=== PATIENT | male | born 1945 | race Caucasian/White ===

== ENCOUNTER → 2017-08-29 | Outpatient (CLI) | payer OTHER ==
[~2017-08-29] MED LIST: ASPCH81; LISI5TAB3 PO; OXYC-57 PO
[2017-08-29 16:43] LABS: BASO % 0.3 %; BASO ABS # 0.02 K/uL (0-0.2); EOS % 0.5 %; EOS ABS # 0.04 K/uL (0-0.5); HEMATOCRIT 39.6 % (42-52); HEMOGLOBIN 13.3 g/dL (14.0-18.0); IG# 0.01 K/uL (0.00-0.02); LYMPH % 17.5 %; LYMPH ABS # 1.32 K/uL (1.2-3.4); MEAN CELL VOLUME 90.6 fL (80-100); MEAN CORPUSCULAR HEMOGLOBIN 30.4 pg (25-34); MEAN CORPUSCULAR HGB CONC 33.6 g/dl (32-36); MEAN PLATELET VOLUME 9.8 fL (7.4-10.4); MONO % 3.9 %; MONO ABS # 0.29 K/uL (0.11-0.59); NEUT % 77.7 %; NEUT ABS # 5.85 K/uL (1.4-6.5); PLATELET COUNT 202 K/uL (130-400); WHITE BLOOD COUNT 7.53 K/uL (4.8-10.8)
[2017-08-29 17:11] LABS: ALBUMIN 3.6 gm/dl (3.4-5.0); ALKALINE PHOSPHATASE 96 U/L (45-117); ALT/SGPT 22 U/L (12-78); AST/SGOT 25 U/L (15-37); BLOOD UREA NITROGEN 12 mg/dl (7-18); CALCIUM 8.5 mg/dl (8.5-10.1); CARBON DIOXIDE 30 mmol/L (21-32); CHOLESTEROL 129 mg/dl (0-200); CREATININE 0.95 mg/dl (0.60-1.40); GLUCOSE 124 mg/dl (70-99); LDL CHOLESTEROL CALCULATED 49 mg/dl; POTASSIUM 4.1 mmol/L (3.5-5.1); SODIUM 137 mmol/L (136-145); TOTAL PROTEIN 6.8 gm/dl (6.4-8.2)
== END | disposition home or self-care (01) ==
LOC: C.LABBFT 14:22
PROVIDERS: ATTEND Physician Assistant Medical
DX: J30.2 Other seasonal allergic rhinitis (principal)

== ENCOUNTER → 2017-09-03 | Outpatient (CLI) | payer OTHER ==
[2017-09-03 13:21] LABS: RETIC COUNT % 1.7 % (0.5-2.0)
[2017-09-03 14:10] LABS: HEMOGLOBIN A1C 5.2 % (4.5-5.6)
== END | disposition home or self-care (01) ==
LOC: C.LABBFT 11:17
PROVIDERS: ATTEND Physician Assistant Medical
DX: R73.09 Other abnormal glucose (principal); D64.9 Anemia, unspecified

== ENCOUNTER 2021-12-14 05:28 | Inpatient (IN) ==
--- NOTE | 2021-12-07 12:12 | Anesthesiology Consultation ---
Date of Service December 07, 2021 History Surgery Operation Date: 12/14/21 07:00 Proposed Procedures p Laparoscopic Right Hemicolectomy - Tim Kline, Height/Weight Height: 5 ft 8 in Weight: 61.235 kg Allergies Allergy/AdvReac Type Severity Reaction Status Date / Time terbinafine Allergy Mild Rash Verified 12/07/21 10:12 lactose AdvReac Gastrointestinal Verified 12/07/21 10:12 Upset Medications Home Medications Medication Instructions Recorded Confirmed Last Taken lisinopril 5 mg tablet 5 mg PO QAM 12/07/21 12/07/21 Unknown meloxicam 15 mg tablet 15 mg PO QAM 12/07/21 12/07/21 Unknown Past Medical History Medical History BPH (benign prostatic hyperplasia) Cardiac murmur D/T MVR Cecal volvulus Hearing deficit hearing aids Hyponatremia Mitral valve regurgitation f/u Dr. Gallegos, his PCP Osteoarthritis Seasonal allergies Past Family History Family History Mother Myocardial infarction Cancer Heart disease Hypertension Aunt Myocardial infarction Uncle Myocardial infarction Brother Mitral valve replaced Leukemia Father Cancer Heart disease Denies family history of Ovarian cancer Prostate cancer Breast cancer Colorectal cancer Past Surgical History Surgical History History of esophagogastroduodenoscopy (EGD) Hx of colonoscopy Hx of right inguinal hernia repair 2005 Hx of tooth extraction Hx of vasectomy Social History Smoking Status: Never smoker Do You Dip or Chew Tobacco: No Hx Alcohol Use: No Alcohol type: beer Hx Substance Use: No substance use type: does not use Testing Electrocardiogram Date: 12/05/21 DICTATED BY:Reyes Boles MD Test Reason : Blood Pressure : / mmHG Vent. Rate : 077 BPM Atrial Rate : 077 BPM P-R Int : 188 ms QRS Dur : 104 ms QT Int : 392 ms P-R-T Axes : 079 -88 078 degrees QTc Int : 443 ms Normal sinus rhythm Left anterior fascicular block Incomplete right bundle branch block Abnormal ECG When compared with ECG of 09-JUL-2006 06:17, No significant change Confirmed by Reyes Boles ([id number]) on 12/05/2021 12:54:09 PM Referred By: Tim Kline Confirmed By:Reyes Boles Echocardiogram Date: 07/22/21 EF: 60-65 LV Function: normal Valvular Disease: + MR (mild) Other Testing CT OF THE ABDOMEN AND PELVIS WITHOUT CONTRAST CLINICAL HISTORY: R10.9 - Unspecified abdominal pain. COMPARISON STUDY: CT of the chest and abdomen July 09, 2006. TECHNIQUE: Axial images of the abdomen and pelvis were obtained without IV contrast. Images were reviewed in the axial, sagittal, and coronal planes. Automated exposure control was utilized for the study. A dose lowering technique was utilized adhering to the principles of ALARA. FINDINGS: Lung bases are unremarkable. No pneumatosis, free air or portal venous gas is present. Evaluation of the abdomen and pelvis is suboptimal on this unenhanced exam. Unenhanced images of the liver, spleen, adrenal glands, kidneys and pancreas are unremarkable. There is no biliary or pancreatic ductal dilatation. There is no hydronephrosis. A small amount of pelvic ascites is noted. There is evidence for congenital bowel malrotation. There is swirling of the mesenteric vessels shown best on axial image 162 of 421. This finding is age indeterminate. There are clustered jejunal loops which are mildly fluid-filled with borderline dilatation. These measure up to 2.7 cm in caliber. There is associated mesenteric stranding. In addition, the cecum is filled with stool and markedly distended, measuring 11.4 cm in caliber. The cecum is also abnormally positioned within the upper pelvis extending into the lower abdomen. Apparent transition point within the proximal ascending colon shown on axial image 265 of 421 is noted. Adjacent prominent lymph node measures 8 mm. There is mild wall thickening of the terminal ileum. Sigmoid diverticulosis is noted without evidence for acute diverticulitis. The prostate is enlarged, measuring 6.5 cm in transverse dimension. No acute fracture or suspicious lesion within the visualized skeletal structures. IMPRESSION: 1. Stool-filled, markedly distended cecum, measuring 11.4 cm in diameter. Apparent transition point within the proximal ascending colon, suboptimally assessed on this unenhanced exam. This could be due to a developing cecal volvulus or underlying colonic neoplasm. Surgical consultation is recommended. Findings discussed with Dr. Gallegos at time of dictation. 2. Evidence for congenital bowel malrotation. Prominent fluid-filled clustered jejunal loops. Although not highly suggestive, a small bowel obstruction in the setting of midgut volvulus cannot be completely excluded, particularly given mesenteric stranding. No pneumatosis, free air or portal venous gas. Small amount of fluid within the pelvis. ACT 112: Negative or not required by law. Electronically signed by: Lenny Mansfield M.D. 11/30/2021 3:58 PM Dictated:11/30/21 1534
[2021-12-14] MEDS ORDERED: SODIUM CHLORIDE 0.9% 1000ML IV SCH (06:00)
[2021-12-14] MEDS ORDERED: ceFAZolin 2000MG 2,000 MG/15 ML SYR IV SCH (06:00)
[2021-12-14 06:42] LABS: BUN Creatinine Ratio 11.4 (10-20); Calcium 9.4 mg/dl (8.5-10.1); Creatinine Clr Calc Pharmacy 58.1 ml/min; Est GFR (Non-African American) 82.9 ml/min; Potassium 3.7 mmol/L (3.5-5.1)
--- NOTE | 2021-12-14 06:45 | History & Physical Bridge Note ---
Date of Service December 14, 2021 History & Physical Bridge Note I have examined the patient, reviewed the History & Physical and in the interval since the performance of the History & Physical I have noted the following changes of clinical significance: no changes noted
[2021-12-14] MEDS ORDERED: EPINEPHrine INJ 1 MG/ML AMP ONE (06:51)
[2021-12-14] MEDS ORDERED: BUPIVACAINE 0.5 % 5 MG/1 ML MPF 30ML VIAL ONE (06:51)
[2021-12-14] MEDS ORDERED: ONDANSETRON INJ 2 MG/ML 2 ML VIAL IV PRN ×2 (07:00→11:03)
[2021-12-14] MEDS ORDERED: LABETALOL HCL IV 5 MG/ML 20ML IV PRN (07:00)
[2021-12-14] MEDS ORDERED: PROMETHAZINE HCL 12.5 MG in SODIUM CHLORIDE 0.9% 50 ML IV PRN (07:00)
[2021-12-14] MEDS ORDERED: ePHEDrine sulfate 50 MG/ML AMP IV PRN (07:00)
[2021-12-14] MEDS ORDERED: FLUMAZENIL 0.1 MG/1 ML 10 ML VIAL IV PRN (07:00)
[2021-12-14] MEDS ORDERED: ATROPINE SULFATE 0.1 MG/ML 10ML SYR IV PRN (07:00)
[2021-12-14] MEDS ORDERED: NALOXONE HCL 0.4 MG/1 ML VIAL/CARP IV PRN (07:00)
[2021-12-14] MEDS ORDERED: fentaNYL citrate 100 MCG/2 ML VIAL ONE (07:05)
[2021-12-14] MEDS ORDERED: LIDOCAINE 2% MPF LOCAL 5 ML VIAL INFIL ONE (07:07)
[2021-12-14] MEDS ORDERED: PROPOFOL IV EMULSION 10 MG/ML 20 ML VIAL IV ONE (07:07)
[2021-12-14] MEDS ORDERED: ROCURONIUM BROMIDE 10 MG/ML 5 ML VIAL IV ONE (07:07)
[2021-12-14] MEDS ORDERED: ACETAMINOPHEN 1000 MG/100 ML IV IV ONE (07:09)
[2021-12-14] MEDS ORDERED: SUGAMMADEX SODIUM 200 MG/2 ML VIAL IV ONE (07:09)
[2021-12-14] MEDS ORDERED: ONDANSETRON INJ 2 MG/ML 2 ML VIAL ONE (07:11)
[2021-12-14] MEDS ORDERED: DEXAMETHASONE SOD INJ 4 MG/ML VIAL ONE (07:11)
[2021-12-14] MEDS ORDERED: ALBUMIN HUMAN 5% 12.5 GM/250 ML VIAL IV ONE (07:21)
[2021-12-14] MEDS ORDERED: HYDROmorphone INJ 2 MG/ML SYR/VIAL ONE (07:21)
[2021-12-14] MEDS ORDERED: PHENYLEPHRINE HCL 10 MG/ML VIAL ONE (07:36)
[2021-12-14] MEDS ORDERED: KETAMINE 50 MG/5 ML SYRINGE ONE (07:40)
--- NOTE | 2021-12-14 09:03 | Operative Report ---
PG Post Operative Report Pre & Post Diagnosis Operation Date: 12/14/21 07:00 Pre-Op Diagnosis: Cecal Volvulus Post-Op Diagnosis: Cecal Volvulus ; midgut malrotation I identified the patient and participated in the time-out.: Yes Procedure Operation Date: 12/14/21 07:00 Actual Procedures p Laparoscopic converted open Right Hemicolectomy(Right) - Tim Kline DO Surgeon Tim Kline DO Last Model Department Supervisor juan Martinez Estimated Blood Loss 10 Findings Consistent with Post-Op Diagnosis Specimens cecum, right colon Description of Procedure After informed consent was obtained the patient was taken to the operating room and placed in supine position. After successful intubation a Alejandre cath was placed sterilely. The abdomen was sterilely prepped and draped in usual fashion. I began with an infraumbilical incision with 11 blade scalpel. This was carried down through the soft tissue using cautery. The anterior fascia was opened using cautery and two #0 Vicryl stay sutures were placed. Peritoneum was elevated with hemostats and incised under direct vision using a Metzenbaum scissor. Finger sweep was performed. A 12 mm Thomas trocar was placed and the abdomen was insufflated to 20 mmHg. The laparoscope was inserted and the abdomen examined in 360 degrees. A left lower quadrant 12 mm trocar and a suprapubic 5 mm trocar were placed under direct vision. We immediately noted a dilated cecum. It became readily apparent that the patient actually did have a midgut malrotation. It was very difficult to delineate anatomy as the majority of his bowel was in a retroperitoneal sac. At this point early on we decided to convert to an open procedure. The trochars were all removed. We made a midline incision from below the umbilicus up and around part way up to the xiphoid process. This was opened to both poles using cautery. Once in the abdomen we were able to open the sac to identify the entirety of the small bowel. The cecum was in fact twisted and had a leading point attached to the right lower quadrant sidewall. I was able to take this down using finger fractionation. At this point we were able to identify the terminal ileum and transected it with a LUIS MIGUEL brown cartridge linear stapler. We were then able to follow the cecum up to the mid transverse colon. I made a small window in the mesentery of the transverse colon proximal to the middle colic vessels. Transverse colon was transected with a brown cartridge 60 mm stapler as well. We then divided the mesentery using the LigaSure device. We then ran the small bowel from the ligament of Treitz which was in the right upper quadrant down to the staple line. At this point we made a side to side small bowel to transverse colon anastomosis using a LUIS MIGUEL brown cartridge linear stapler. We used 2 firings of a brown 60 to elongate the anastomosis. The common enterotomy was handsewn using 3-0 Monocryl for serosal mucosal layers in simple interrupted fashion. It was then oversewn in Lembert fashion using 3-0 silk. 3-0 silk was also used to place a crotch stitch. The mesenteric defect was closed using 2-0 Vicryl in a running fashion. Once the anastomosis was established we again ran the small bowel from the ligament of Treitz to the anastomosis to make sure there was no twisting or internal hernias which there was not. We thoroughly irrigated the entire abdomen. There was adequate hemostasis. The fascia was closed using #1 looped PDS starting in either pole and securing them together in the midline. Soft tissue was irrigated and closed using skin michell over quarter inch [place] drain. Silver dressings were applied. The patient was awakened extubated and transferred recovery in stable condition. My physician geriatric assistant was present for the entire case. He was instrumental in exposure throughout the case as well as assisting with the anastomosis wound closure and dressing placement. I attest to the content of the Intraoperative Record and any orders documented therein. Any exceptions are noted below.
[2021-12-14] MEDS: fentaNYL citrate 100 MCG/2 ML VIAL IV PRN ×4 (09:18→09:33)
[2021-12-14] MEDS: HYDROmorphone INJ 1 MG/ML SYRINGE IV PRN ×5 (09:41→10:10)
--- NOTE | 2021-12-14 10:17 | Anesthesiology Progress Note ---
Date of Service December 14, 2021 Anesthesia Post Procedure Vital Signs Vital Signs: Temp Pulse Pulse Resp BP Pulse Ox O2 Del Method 12/14/21 10:10 36 C L 68 17 130/83 98 Room Air 12/14/21 10:00 72 10 L 136/90 98 Room Air 12/14/21 09:30 61 10 L 156/96 H 100 Oxymask 12/14/21 09:50 70 10 L 140/88 98 Room Air 12/14/21 09:40 63 12 124/100 100 Oxymask 12/14/21 09:20 65 16 149/90 H 100 Oxymask 12/14/21 09:10 36.2 C L 67 11 L 150/87 H 100 Oxymask 12/14/21 05:47 36.7 C 78 17 159/107 H 98 Room Air O2 Flow Rate 12/14/21 10:10 12/14/21 10:00 12/14/21 09:30 2 12/14/21 09:50 12/14/21 09:40 4 12/14/21 09:20 5 12/14/21 09:10 5 12/14/21 05:47 Pain Intensity Abdomen: Pain Intensity: 5 Transfer of Care Handoff Completed per policy Notes Mental Status: alert / awake / arousable Patient Amnestic to Procedure: Yes Nausea / Vomiting: adequately controlled Pain: adequately controlled Airway Patency, RR, SpO2: stable & adequate BP & HR: stable & adequate Hydration State: stable & adequate Anesthetic Complications: no major complications apparent
[2021-12-14] MEDS ORDERED: HYDROmorphone INJ 0.5 MG/0.5 ML SYR IV PRN ×2 (11:03)
[2021-12-14] MEDS: SODIUM CHLORIDE 0.9% 1000ML 1,000 ML IV SCH ×2 (12:01→19:52)
[2021-12-14] MEDS: ACETAMINOPHEN 1,000 MG/100 ML VIAL IV SCH ×2 (12:55→20:00)
[2021-12-14] MEDS: ceFAZolin 2000MG 2,000 MG/15 ML SYR IV SCH ×2 (16:04→23:33)
[2021-12-15] MEDS: ACETAMINOPHEN 1,000 MG/100 ML VIAL IV SCH ×3 (04:08→19:54)
[2021-12-15] MEDS: SODIUM CHLORIDE 0.9% 1000ML 1,000 ML IV SCH ×3 (04:08→21:05)
[2021-12-15] MEDS: ceFAZolin 2000MG 2,000 MG/15 ML SYR IV SCH (06:05)
[2021-12-15 06:29] LABS: Basophils # (auto) 0.03 K/uL (0-0.2); Basophils % (auto) 0.3 %; Eosinophils # (auto) 0.01 K/uL (0-0.50); Eosinophils % (auto) 0.1 %; Hematocrit (blood only) 34.3 % (40.1-51.0); Hemoglobin 11.7 g/dl (14.0-18.0); Immature Granulocytes # (auto) 0.05 K/uL (0.00-0.02); Immature Granulocytes % (auto) 0.4 %; Lymphocytes # (auto) 0.73 K/uL (1.2-3.4); Lymphocytes % (auto) 6.4 %; Mean Corpuscular Hemoglobin 30.4 pg (25.0-34.0); Mean Corpuscular Hgb Conc 34.1 g/dL (32.0-36.0); Mean Corpuscular Volume 89.1 fL (80.0-100.0); Mean Platelet Volume 8.6 fL (9.4-12.4); Monocytes # (auto) 0.76 K/uL (0.24-0.82); Monocytes % (auto) 6.6 %; Neutrophils # (auto) 9.85 K/uL (1.4-6.5); Neutrophils % (auto) 86.2 %; Platelet Count 222 K/uL (130-400); RDW Coefficient of Variation 11.9 % (11.5-14.5); RDW Standard Deviation 38.2 fL (36.4-46.3); Red Blood Count 3.85 M/uL (4.63-6.08); White Blood Count 11.43 K/ul (4.8-10.8)
[2021-12-15 07:01] LABS: BUN Creatinine Ratio 20.3 (10-20); Creatinine Clr Calc Pharmacy 74.1 ml/min; Est GFR (African American) 106.1 ml/min; Est GFR (Non-African American) 91.6 ml/min
--- NOTE | 2021-12-15 07:53 | Surgery Progress Note ---
Date of Service December 15, 2021 Assessment & Plan (1) Cecal volvulus: Plan: POD 1 cecectomy start on clears Lovenox start on Flomax-has nocturia at home, consider removing cole later vs tomorrow as above. doing well. keep cole one more night. clears only for now. Admission and Anticipated Discharge Date Admission Date: December 14, 2021 Subjective some flatus, pain control good, OOB this AM Physical Exam Gastrointestinal (Abdomen): Inspection/Auscultation: + abdominal surgical incision (small shadowing from lower ivet); abdomen not distended Percussion/Palpation: abdomen soft Results & Data ([facility]) Vital Signs (Past 12 Hours) Vital Signs Temp Pulse Resp BP Pulse Ox O2 Del Method 12/15/21 07:22 36.6 C 67 16 158/81 H 97 Room Air 12/15/21 03:20 36.8 C 72 16 145/88 H 91 Room Air 12/14/21 22:42 36.5 C 76 16 111/56 L 95 Room Air PG Care Time/CCT Total # of Minutes Spent Total Time Spent with Patient: Total time spent is greater than 50% in coordination of care (as documented) at patient's floor/unit and/or counseling patient: Coding Level of Care Code None Diagnoses Cecal volvulus K56.2
[2021-12-15] MEDS: lisinopril 5 MG TAB PO SCH (09:25)
[2021-12-15] MEDS: MELOXICAM 7.5 MG TAB PO SCH (09:25)
[2021-12-15] MEDS: TAMSULOSIN HCL 0.4 MG CAP PO SCH (09:25)
[2021-12-15] MEDS: ENOXAPARIN INJ 40 MG/0.4 ML SYR SQ SCH (09:29)
[2021-12-16] MEDS: ACETAMINOPHEN 1,000 MG/100 ML VIAL IV SCH ×3 (04:12→19:38)
[2021-12-16] MEDS: SODIUM CHLORIDE 0.9% 1000ML 1,000 ML IV SCH (04:13)
[2021-12-16 06:02] LABS: Basophils # (auto) 0.03 K/uL (0-0.2); Basophils % (auto) 0.3 %; Eosinophils # (auto) 0.05 K/uL (0-0.50); Eosinophils % (auto) 0.6 %; Hematocrit (blood only) 30.5 % (40.1-51.0); Hemoglobin 10.9 g/dl (14.0-18.0); Immature Granulocytes # (auto) 0.03 K/uL (0.00-0.02); Immature Granulocytes % (auto) 0.3 %; Lymphocytes # (auto) 0.63 K/uL (1.2-3.4); Lymphocytes % (auto) 7.3 %; Mean Corpuscular Hemoglobin 31.3 pg (25.0-34.0); Mean Corpuscular Hgb Conc 35.7 g/dL (32.0-36.0); Mean Corpuscular Volume 87.6 fL (80.0-100.0); Mean Platelet Volume 8.8 fL (9.4-12.4); Monocytes % (auto) 5.8 %; Neutrophils # (auto) 7.39 K/uL (1.4-6.5); Neutrophils % (auto) 85.7 %; Platelet Count 202 K/uL (130-400); RDW Standard Deviation 38.9 fL (36.4-46.3); Red Blood Count 3.48 M/uL (4.63-6.08); White Blood Count 8.63 K/ul (4.8-10.8)
[2021-12-16 06:24] LABS: BUN Creatinine Ratio 14.8 (10-20); Calcium 7.8 mg/dl (8.5-10.1); Creatinine Clr Calc Pharmacy 94.6 ml/min; Est GFR (African American) 117.4 ml/min; Est GFR (Non-African American) 101.3 ml/min; Potassium 3.7 mmol/L (3.5-5.1)
[2021-12-16] MEDS: MELOXICAM 7.5 MG TAB PO SCH (08:26)
[2021-12-16] MEDS: lisinopril 5 MG TAB PO SCH (08:26)
[2021-12-16] MEDS: TAMSULOSIN HCL 0.4 MG CAP PO SCH (08:27)
[2021-12-16] MEDS: ENOXAPARIN INJ 40 MG/0.4 ML SYR SQ SCH (08:28)
--- NOTE | 2021-12-16 10:44 | Surgery Progress Note ---
Date of Service December 16, 2021 Assessment & Plan (1) H/O right hemicolectomy: Plan: Postop day 2. Doing well. Pathology still pending. Awaiting bowel function. Will advance to full liquids. Dr. Hurtado covering for the weekend. Admission and Anticipated Discharge Date Admission Date: December 14, 2021 Subjective Patient seen. Doing well. No bowel movement but he is passing flatus. Minimal discomfort that is well controlled. Physical Exam Physical Exam: Alert. No acute distress Abdomen is soft. Expected incisional tenderness. Incision looks good. Results & Data ([facility]) Vital Signs (Past 12 Hours) Vital Signs Temp Pulse Pulse Resp BP Pulse Ox O2 Del Method 12/16/21 07:36 36.3 C L 76 18 137/82 95 Room Air 12/15/21 23:39 36.8 C 72 18 137/82 100 Room Air PG Care Time/CCT Total # of Minutes Spent Total Time Spent with Patient: Total time spent is greater than 50% in coordination of care (as documented) at patient's floor/unit and/or counseling patient: Coding Level of Care Code None Diagnoses H/O right hemicolectomy Z90.49
[2021-12-16] MEDS ORDERED: oxyCODONE/ACETAMINOPHEN 5mg/325mg TAB PO PRN ×2 (19:34→19:37)
[2021-12-17] MEDS: ACETAMINOPHEN 1,000 MG/100 ML VIAL IV SCH (04:14)
[2021-12-17 06:18] LABS: Basophils # (auto) 0.02 K/uL (0-0.2); Basophils % (auto) 0.3 %; Eosinophils # (auto) 0.06 K/uL (0-0.50); Eosinophils % (auto) 0.9 %; Hematocrit (blood only) 33.6 % (40.1-51.0); Hemoglobin 11.9 g/dl (14.0-18.0); Immature Granulocytes # (auto) 0.02 K/uL (0.00-0.02); Immature Granulocytes % (auto) 0.3 %; Lymphocytes # (auto) 0.61 K/uL (1.2-3.4); Lymphocytes % (auto) 9.4 %; Mean Corpuscular Hemoglobin 30.8 pg (25.0-34.0); Mean Corpuscular Hgb Conc 35.4 g/dL (32.0-36.0); Mean Platelet Volume 8.6 fL (9.4-12.4); Monocytes # (auto) 0.48 K/uL (0.24-0.82); Monocytes % (auto) 7.4 %; Neutrophils % (auto) 81.7 %; Platelet Count 212 K/uL (130-400); RDW Coefficient of Variation 11.8 % (11.5-14.5); RDW Standard Deviation 37.9 fL (36.4-46.3); Red Blood Count 3.86 M/uL (4.63-6.08); White Blood Count 6.49 K/ul (4.8-10.8)
[2021-12-17 06:39] LABS: BUN Creatinine Ratio 12.7 (10-20); Calcium 7.9 mg/dl (8.5-10.1); Creatinine Clr Calc Pharmacy 92.9 ml/min; Est GFR (African American) 116.5 ml/min; Est GFR (Non-African American) 100.5 ml/min; Potassium 3.6 mmol/L (3.5-5.1)
--- NOTE | 2021-12-17 06:50 | Surgery Progress Note ---
Date of Service December 17, 2021 Assessment & Plan (1) H/O right hemicolectomy: Plan: Patient with some mild bowel function Is a little distended-decreased bowel sounds We will continue him on full liquids Encourage ambulation in the hallway Advance diet depending on his bowel function At least 1-2 more days in the hospital Admission and Anticipated Discharge Date Admission Date: December 14, 2021 Results & Data ([facility]) Vital Signs (Past 12 Hours) Vital Signs Temp Pulse Resp BP Pulse Ox O2 Del Method 12/16/21 20:30 Room Air 12/16/21 22:46 36.7 C 77 20 133/87 95 Room Air PG Care Time/CCT Total # of Minutes Spent Total Time Spent with Patient: Total time spent is greater than 50% in coordination of care (as documented) at patient's floor/unit and/or counseling patient: Coding Level of Care Code None Diagnoses H/O right hemicolectomy Z90.49
[2021-12-17] MEDS: lisinopril 5 MG TAB PO SCH (08:42)
[2021-12-17] MEDS: ENOXAPARIN INJ 40 MG/0.4 ML SYR SQ SCH (08:43)
[2021-12-17] MEDS: TAMSULOSIN HCL 0.4 MG CAP PO SCH (08:43)
[2021-12-17] MEDS: MELOXICAM 7.5 MG TAB PO SCH (08:43)
--- NOTE | 2021-12-17 12:26 | XRay Report ---
KUB HISTORY: Postop. Bowel obstruction. Abdominal distention. COMPARISON: Abdomen and pelvis CT 11/30/2021. FINDINGS: There are midline skin michell. Multiple dilated gas-filled loops of large and small bowel are noted. No renal calculi. No ureteral calculi. There may be trace pneumoperitoneum within the lef t upper quadrant. This could be postoperative. IMPRESSION: 1. Multiple dilated gas filled loops of large and small bowel seen throughout the abdomen. Findings f avor a postoperative ileus. A residual bowel obstruction could also have a similar appearance. Contin ued follow-up recommended. 2. Probable trace pneumoperitoneum. This could be due to the recent postoperative change. ACT 112: Negative or not required by law. Electronically signed by: Dalton Sutton M.D. 12/17/2021 12:24 PM
--- NOTE | 2021-12-17 13:50 | Communication Note ---
Date of Service: December 17, 2021 Was made aware by RN patient noted increasing abdominal distention and discomfort. KUB ordered revealing evidence of ileus. Patient also had an episode of emesis. On exam patient's abdomen is distended with mild general discomfort to palpation. At this time will back patient down to NPO, restart maintenance IVF, and order NGT to be placed. Patient is agreeable with the plan.
[2021-12-17 14:49] LABS: Magnesium 1.7 mg/dl (1.7-2.4); Phosphorus 2.2 mg/dl (2.5-4.9)
[2021-12-17] MEDS: D5NSS + 20MEQ KCL 20 MEQ/1,000 ML BAG IV SCH (16:23)
[2021-12-17] MEDS: ACETAMINOPHEN 1,000 MG/100 ML VIAL IV PRN (21:48)
[2021-12-18] MEDS: D5NSS + 20MEQ KCL 20 MEQ/1,000 ML BAG IV SCH ×2 (05:11→21:40)
[2021-12-18 07:13] LABS: Basophils # (auto) 0.03 K/uL (0-0.2); Basophils % (auto) 0.4 %; Eosinophils # (auto) 0.02 K/uL (0-0.50); Eosinophils % (auto) 0.3 %; Hematocrit (blood only) 33.1 % (40.1-51.0); Hemoglobin 11.6 g/dl (14.0-18.0); Immature Granulocytes # (auto) 0.01 K/uL (0.00-0.02); Immature Granulocytes % (auto) 0.1 %; Lymphocytes % (auto) 6.7 %; Mean Corpuscular Hemoglobin 30.5 pg (25.0-34.0); Mean Corpuscular Volume 87.1 fL (80.0-100.0); Mean Platelet Volume 8.5 fL (9.4-12.4); Monocytes # (auto) 0.45 K/uL (0.24-0.82); Neutrophils # (auto) 6.43 K/uL (1.4-6.5); Neutrophils % (auto) 86.5 %; Platelet Count 223 K/uL (130-400); RDW Coefficient of Variation 12.1 % (11.5-14.5); RDW Standard Deviation 38.8 fL (36.4-46.3); White Blood Count 7.44 K/ul (4.8-10.8)
[2021-12-18 07:14] LABS: Basophils # (auto) 0.02 K/uL (0-0.2); Basophils % (auto) 0.3 %; Eosinophils # (auto) 0.02 K/uL (0-0.50); Eosinophils % (auto) 0.3 %; Hematocrit (blood only) 32.6 % (40.1-51.0); Hemoglobin 11.7 g/dl (14.0-18.0); Immature Granulocytes # (auto) 0.01 K/uL (0.00-0.02); Immature Granulocytes % (auto) 0.1 %; Lymphocytes # (auto) 0.51 K/uL (1.2-3.4); Lymphocytes % (auto) 7.1 %; Mean Corpuscular Hgb Conc 35.9 g/dL (32.0-36.0); Mean Corpuscular Volume 86.2 fL (80.0-100.0); Mean Platelet Volume 8.5 fL (9.4-12.4); Monocytes # (auto) 0.46 K/uL (0.24-0.82); Monocytes % (auto) 6.4 %; Neutrophils # (auto) 6.21 K/uL (1.4-6.5); Neutrophils % (auto) 85.8 %; Platelet Count 224 K/uL (130-400); RDW Coefficient of Variation 12.1 % (11.5-14.5); RDW Standard Deviation 37.9 fL (36.4-46.3); Red Blood Count 3.78 M/uL (4.63-6.08); White Blood Count 7.23 K/ul (4.8-10.8)
[2021-12-18 07:37] LABS: BUN Creatinine Ratio 23.4 (10-20); Calcium 8.1 mg/dl (8.5-10.1); Creatinine Clr Calc Pharmacy 79.8 ml/min; Est GFR (African American) 109.5 ml/min; Est GFR (Non-African American) 94.4 ml/min; Potassium 3.5 mmol/L (3.5-5.1)
--- NOTE | 2021-12-18 07:45 | Surgery Progress Note ---
Date of Service December 18, 2021 Assessment & Plan (1) H/O right hemicolectomy: Plan: Patient improved however requiring NG tube for ileus He is passing some flatus and having loose bowel movements His phosphorus was low so we will replete this Monitor his magnesium level Encourage ambulation Try clamping NG tube but continue today Admission and Anticipated Discharge Date Admission Date: December 14, 2021 Results & Data ([facility]) Vital Signs (Past 12 Hours) Vital Signs Temp Pulse Resp BP Pulse Ox O2 Del Method 12/18/21 07:22 36.6 C 80 16 119/78 93 Room Air 12/17/21 22:00 Room Air 12/17/21 22:02 36.6 C 93 H 16 104/69 93 Room Air PG Care Time/CCT Total # of Minutes Spent Total Time Spent with Patient: Total time spent is greater than 50% in coordination of care (as documented) at patient's floor/unit and/or counseling patient: Coding Level of Care Code None Diagnoses H/O right hemicolectomy Z90.49
[2021-12-18] MEDS ORDERED: POTASSIUM PHOSPHATE 9 MMOL in SODIUM CHLORIDE 0.9% 250 ML IV ONE (08:00)
[2021-12-18] MEDS: MELOXICAM 7.5 MG TAB PO SCH (08:17)
[2021-12-18] MEDS: lisinopril 5 MG TAB PO SCH (08:17)
[2021-12-18] MEDS: TAMSULOSIN HCL 0.4 MG CAP PO SCH (08:17)
[2021-12-18] MEDS: ENOXAPARIN INJ 40 MG/0.4 ML SYR SQ SCH (09:10)
[2021-12-18] MEDS: ACETAMINOPHEN 1,000 MG/100 ML VIAL IV PRN (15:54)
--- NOTE | 2021-12-19 06:27 | Surgery Progress Note ---
Date of Service December 19, 2021 Assessment & Plan (1) H/O right hemicolectomy: Plan: Patient awake and alert in no distress with some decreased bowel sounds Abdomen much less distended Patient has some mild bloating symptoms after long clamping Continues have some bilious output from the NG when open to suction We discussed removing the tube with a chance of having to put it back in He would rather keep the NG tube in for another day and I feel this is the b est treatment Continue clamping and encourage ambulation Resolving ileus Admission and Anticipated Discharge Date Admission Date: December 14, 2021 Results & Data ([facility]) Vital Signs (Past 12 Hours) Vital Signs Temp Pulse Resp BP Pulse Ox O2 Del Method 12/18/21 21:40 Room Air 12/18/21 21:25 36.5 C 103 H 16 116/75 96 Room Air PG Care Time/CCT Total # of Minutes Spent Total Time Spent with Patient: Total time spent is greater than 50% in coordination of care (as documented) at patient's floor/unit and/or counseling patient: Coding Level of Care Code None Diagnoses H/O right hemicolectomy Z90.49
[2021-12-19 08:02] LABS: BUN Creatinine Ratio 24.6 (10-20); Creatinine Clr Calc Pharmacy 89.6 ml/min; Est GFR (African American) 114.8 ml/min; Magnesium 1.7 mg/dl (1.7-2.4); Phosphorus 2.7 mg/dl (2.5-4.9); Potassium 3.8 mmol/L (3.5-5.1)
[2021-12-19] MEDS: ENOXAPARIN INJ 40 MG/0.4 ML SYR SQ SCH (08:18)
[2021-12-19] MEDS: MELOXICAM 7.5 MG TAB PO SCH (08:19)
[2021-12-19] MEDS: lisinopril 5 MG TAB PO SCH (08:19)
[2021-12-19] MEDS: TAMSULOSIN HCL 0.4 MG CAP PO SCH (08:19)
[2021-12-19] MEDS: D5NSS + 20MEQ KCL 20 MEQ/1,000 ML BAG IV SCH ×2 (10:04→21:18)
[2021-12-19] MEDS: ACETAMINOPHEN 1,000 MG/100 ML VIAL IV PRN (21:19)
[2021-12-20] MEDS: ACETAMINOPHEN 1,000 MG/100 ML VIAL IV PRN ×3 (05:38→18:38)
[2021-12-20 06:56] LABS: Basophils # (auto) 0.03 K/uL (0-0.2); Basophils % (auto) 0.5 %; Eosinophils # (auto) 0.12 K/uL (0-0.50); Eosinophils % (auto) 2.1 %; Hematocrit (blood only) 30.9 % (40.1-51.0); Hemoglobin 10.6 g/dl (14.0-18.0); Immature Granulocytes # (auto) 0.01 K/uL (0.00-0.02); Immature Granulocytes % (auto) 0.2 %; Lymphocytes # (auto) 0.51 K/uL (1.2-3.4); Lymphocytes % (auto) 9.1 %; Mean Corpuscular Hemoglobin 30.9 pg (25.0-34.0); Mean Corpuscular Hgb Conc 34.3 g/dL (32.0-36.0); Mean Corpuscular Volume 90.1 fL (80.0-100.0); Monocytes # (auto) 0.42 K/uL (0.24-0.82); Monocytes % (auto) 7.5 %; Neutrophils # (auto) 4.54 K/uL (1.4-6.5); Neutrophils % (auto) 80.6 %; Platelet Count 199 K/uL (130-400); RDW Coefficient of Variation 12.3 % (11.5-14.5); RDW Standard Deviation 40.3 fL (36.4-46.3); Red Blood Count 3.43 M/uL (4.63-6.08); White Blood Count 5.63 K/ul (4.8-10.8)
[2021-12-20 07:52] LABS: BUN Creatinine Ratio 17.4 (10-20); Calcium 8.1 mg/dl (8.5-10.1); Creatinine Clr Calc Pharmacy 111.1 ml/min; Est GFR (African American) 125.4 ml/min; Est GFR (Non-African American) 108.2 ml/min; Magnesium 1.5 mg/dl (1.7-2.4); Phosphorus 2.3 mg/dl (2.5-4.9); Potassium 3.6 mmol/L (3.5-5.1)
--- NOTE | 2021-12-20 08:28 | Surgery Progress Note ---
Date of Service December 20, 2021 Assessment & Plan (1) H/O right hemicolectomy: Plan: Resolving ileus check KUB before removing NG ivet removed from incision seen with Dr. Kline as above. recheck KUB. if improved will pull ngt and start clears. Admission and Anticipated Discharge Date Admission Date: December 14, 2021 Subjective feeling better, some flatus Physical Exam Constitutional: WD/WN, vitals as above Gastrointestinal (Abdomen): Inspection/Auscultation: + abdomen distended (minimal) and + abdominal surgical incision (dry, no erythema) Percussion/Palpation: abdomen soft NG 150 per shift Results & Data ([facility]) Vital Signs (Past 12 Hours) Vital Signs Temp Pulse Resp BP Pulse Ox O2 Del Method 12/20/21 07:37 36.5 C 78 16 138/86 97 Room Air 12/19/21 21:18 Room Air 12/19/21 21:23 36.5 C 79 14 140/78 95 Room Air PG Care Time/CCT Total # of Minutes Spent Total Time Spent with Patient: Total time spent is greater than 50% in coordination of care (as documented) at patient's floor/unit and/or counseling patient: Coding Level of Care Code None Diagnoses H/O right hemicolectomy Z90.49
[2021-12-20] MEDS: ENOXAPARIN INJ 40 MG/0.4 ML SYR SQ SCH (08:41)
[2021-12-20] MEDS: lisinopril 5 MG TAB PO SCH (10:05)
[2021-12-20] MEDS: TAMSULOSIN HCL 0.4 MG CAP PO SCH (10:05)
[2021-12-20] MEDS: MELOXICAM 7.5 MG TAB PO SCH (10:05)
--- NOTE | 2021-12-20 10:09 | XRay Report ---
KUB HISTORY: Postop. ileus COMPARISON: KUB 12/17/2021. FINDINGS: Nasogastric tube terminates in the stomach. There are midline skin michell again noted. The re are suture material within the left side the abdomen. Mildly dilated gas-filled loops of large and small bowel again noted throughout the abdomen. This is stable slightly improved compared the prior study. Trace bilateral pleural effusions. No renal calculi. No ureteral calculi. No pneumoperitoneum or pneumatosis. IMPRESSION: 1. Multiple mildly dilated gas-filled loops of large and small bowel are again noted throughout the a bdomen. This is stable to slightly improved compared to the prior study. This favors a postoperative ileus. A residual bowel obstruction could also have a similar appearance. Continued follow-up recomme nded. 2. Nasogastric tube terminates in the stomach. 3. Trace bilateral pleural fusions. ACT 112: Negative or not required by law. Electronically signed by: Dalton Sutton M.D. 12/20/2021 10:08 AM
[2021-12-20] MEDS: D5NSS + 20MEQ KCL 20 MEQ/1,000 ML BAG IV SCH (11:39)
[2021-12-21] MEDS: D5NSS + 20MEQ KCL 20 MEQ/1,000 ML BAG IV SCH (00:58)
[2021-12-21] MEDS: ACETAMINOPHEN 1,000 MG/100 ML VIAL IV PRN ×2 (02:59→12:09)
--- NOTE | 2021-12-21 08:43 | Surgery Progress Note ---
Date of Service December 21, 2021 Assessment & Plan (1) H/O right hemicolectomy: Plan: will check residual...if low will pull ngt and start clears. reviewed path with patient. awaiting full return of bowel fx Admission and Anticipated Discharge Date Admission Date: December 14, 2021 Subjective pt seen. feeling well over all. ngt clamped since 3 AM. no nausea. lots of flatus and loose bm yesterday Physical Exam Physical Exam: alert. nad abd: soft. ? mild distension. wound looks good. Results & Data ([facility]) Vital Signs (Past 12 Hours) Vital Signs Temp Pulse Resp BP Pulse Ox O2 Del Method 12/20/21 22:35 36.6 C 79 16 143/83 H 96 Room Air PG Care Time/CCT Total # of Minutes Spent Total Time Spent with Patient: Total time spent is greater than 50% in coordination of care (as documented) at patient's floor/unit and/or counseling patient: Coding Level of Care Code None Diagnoses H/O right hemicolectomy Z90.49
[2021-12-21] MEDS: ENOXAPARIN INJ 40 MG/0.4 ML SYR SQ SCH (10:01)
[2021-12-21] MEDS: TAMSULOSIN HCL 0.4 MG CAP PO SCH (10:02)
[2021-12-21] MEDS: MELOXICAM 7.5 MG TAB PO SCH (10:02)
[2021-12-21] MEDS: lisinopril 5 MG TAB PO SCH (10:02)
--- NOTE | 2021-12-21 11:10 | XRay Report ---
KUB HISTORY: Postop ileus. Follow-up. Evaluate bowel gas pattern. COMPARISON: KUB 12/20/2021. FINDINGS: Midline skin michell are again noted. There are suture material in the left side the abdome n. Dilated gas-filled loops of large and small bowel are again seen throughout the abdomen. This has slightly improved in the interval. The nasogastric tube is been removed. Trace bilateral pleural effu sions again noted. There is gas seen within the rectum. No renal calculi. No ureteral calculi. No pn eumoperitoneum or pneumatosis. IMPRESSION: 1. Slight improvement in the dilated gas-filled loops of large and small bowel seen throughout the ab domen. Findings favor a resolving postoperative ileus. A residual small bowel obstruction could also have a similar appearance. Continued follow-up recommended. 2. Trace bilateral pleural effusions, unchanged. ACT 112: Negative or not required by law. Electronically signed by: Dalton Sutton M.D. 12/21/2021 11:08 AM
[2021-12-22 06:09] LABS: Basophils # (auto) 0.02 K/uL (0-0.2); Basophils % (auto) 0.5 %; Eosinophils # (auto) 0.09 K/uL (0-0.50); Eosinophils % (auto) 2.1 %; Hematocrit (blood only) 30.6 % (40.1-51.0); Hemoglobin 10.6 g/dl (14.0-18.0); Immature Granulocytes # (auto) 0.03 K/uL (0.00-0.02); Immature Granulocytes % (auto) 0.7 %; Lymphocytes % (auto) 13.7 %; Mean Corpuscular Hemoglobin 30.5 pg (25.0-34.0); Mean Corpuscular Hgb Conc 34.6 g/dL (32.0-36.0); Mean Corpuscular Volume 88.2 fL (80.0-100.0); Mean Platelet Volume 8.7 fL (9.4-12.4); Monocytes # (auto) 0.46 K/uL (0.24-0.82); Monocytes % (auto) 10.5 %; Neutrophils # (auto) 3.18 K/uL (1.4-6.5); Neutrophils % (auto) 72.5 %; Platelet Count 189 K/uL (130-400); RDW Coefficient of Variation 11.9 % (11.5-14.5); RDW Standard Deviation 38.3 fL (36.4-46.3); Red Blood Count 3.47 M/uL (4.63-6.08); White Blood Count 4.38 K/ul (4.8-10.8)
[2021-12-22 06:31] LABS: BUN Creatinine Ratio 22.2 (10-20); Calcium 8.4 mg/dl (8.5-10.1); Creatinine Clr Calc Pharmacy 94.6 ml/min; Est GFR (African American) 117.4 ml/min; Est GFR (Non-African American) 101.3 ml/min; Potassium 3.8 mmol/L (3.5-5.1)
--- NOTE | 2021-12-22 09:55 | Surgery Progress Note ---
Date of Service December 22, 2021 Assessment & Plan (1) H/O right hemicolectomy: Plan: Doing well. Will increase to full liquids. If he tolerates will do low residue diet tomorrow with plans for discharge tomorrow. We will apply some hydrocortisone cream to his upper back rash at his request. Admission and Anticipated Discharge Date Admission Date: December 14, 2021 Subjective Patient seen. Feeling well overall. Tolerating diet. Starting to feel hungry. Had a small liquid bowel movement overnight. Physical Exam Physical Exam: Alert. No acute distress Abdomen is soft nontender. Incision looks good. He does have a maculopapular rash on his upper back. Results & Data ([facility]) Vital Signs (Past 12 Hours) Vital Signs Temp Pulse Resp BP BP Pulse Ox O2 Del Method 12/22/21 07:59 36.6 C 81 17 113/77 96 Room Air 12/21/21 23:37 36.6 C 89 18 110/71 96 Room Air PG Care Time/CCT Total # of Minutes Spent Total Time Spent with Patient: Total time spent is greater than 50% in coordination of care (as documented) at patient's floor/unit and/or counseling patient: Coding Level of Care Code None Diagnoses H/O right hemicolectomy Z90.49
[2021-12-22] MEDS: TAMSULOSIN HCL 0.4 MG CAP PO SCH (10:12)
[2021-12-22] MEDS: ENOXAPARIN INJ 40 MG/0.4 ML SYR SQ SCH (10:12)
[2021-12-22] MEDS: lisinopril 5 MG TAB PO SCH (10:13)
[2021-12-22] MEDS: MELOXICAM 7.5 MG TAB PO SCH (10:13)
[2021-12-22] MEDS: HYDROCORTISONE 1% CRM 30 GM TUBE EXT PRN (10:58)
[2021-12-23] MEDS: ACETAMINOPHEN 1,000 MG/100 ML VIAL IV PRN (05:28)
[2021-12-23] MEDS: HYDROCORTISONE 1% CRM 30 GM TUBE EXT PRN (05:32)
[2021-12-23] MEDS ORDERED: ACETAMINOPHEN 325 MG TAB PO PRN (07:16)
[2021-12-23] MEDS: ENOXAPARIN INJ 40 MG/0.4 ML SYR SQ SCH (07:49)
[2021-12-23] MEDS: TAMSULOSIN HCL 0.4 MG CAP PO SCH (07:49)
[2021-12-23] MEDS: lisinopril 5 MG TAB PO SCH (07:50)
[2021-12-23] MEDS: MELOXICAM 7.5 MG TAB PO SCH (07:50)
--- NOTE | 2021-12-23 07:54 | Surgery Progress Note ---
Date of Service December 23, 2021 Assessment & Plan (1) H/O right hemicolectomy: Plan: POD#9 R hemicolectomy Patient feeling well this AM Only requiring tylenol for pain Incisions c/d/i Using hydrocortisone for rash which is not worsening per pt Will advance to low fiber this AM and see how he fairs Likely discharge to home this afternoon. F/u in clinic with Dr. Kline as above. doing well. mo regular diet ok for d/c. instructions given. Admission and Anticipated Discharge Date Admission Date: December 14, 2021 Subjective Patient feeling well overall. Tolerating a full liquid diet. No nausea/vomiting. Endorses some lower belly pain with movement/walking around. Is passing flatus, had a small formed stool this AM. Physical Exam Physical Exam: awake/alert Gastrointestinal (Abdomen): Inspection/Auscultation: + abdomen distended (mild/lower abdomen) and + abdominal surgical incision (c/d/i with surgical michell, no signs of infection ) Percussion/Palpation: abdomen soft; abdomen nontender Results & Data ([facility]) Vital Signs (Past 12 Hours) Vital Signs Temp Pulse Resp BP Pulse Ox O2 Del Method 12/22/21 21:21 36.6 C 74 18 124/79 97 Room Air PG Care Time/CCT Total # of Minutes Spent Total Time Spent with Patient: Total time spent is greater than 50% in coordination of care (as documented) at patient's floor/unit and/or counseling patient: Coding Level of Care Code None Diagnoses H/O right hemicolectomy Z90.49
--- NOTE | 2021-12-28 08:31 | Discharge Summary ---
Date of Service December 23, 2021 Principal Diagnosis h/o right hemicolectomy Discharge Exam awake/alert Gastrointestinal (Abdomen) Inspection/Auscultation: + abdomen distended (mild/lower abdomen) and + abdominal surgical incision (c/d/i with surgical michell, no signs of infection ) Percussion/Palpation: abdomen soft; abdomen nontender Discharge Data Allergies Allergy/AdvReac Type Severity Reaction Status Date / Time terbinafine Allergy Mild Rash Verified 12/14/21 05:45 lactose AdvReac Gastrointestinal Verified 12/14/21 05:45 Upset Procedures Performed Operation Date: 12/14/21 07:00 Actual Procedures p converted open Right Hemicolectomy(Right) - Tim Kline DO s Laparoscopic (Right) - Tim Kline DO Hospital Course (1) H/O right hemicolectomy: This is a 76yM with a PMH of cecal volvulus who presented to the [facility] on 12/14/21 for a scheduled right colon resection. On 12/14 the patient went to the OR with Dr. Kline for a laparoscopic converted to open right hemicolectomy. The patient tolerated the procedure well, see op note for full details. The patient recovered in the PACU and was transferred to the med/surg unit in stable condition. The patient's diet was slowly advanced from clears to full liquids. Alejandre removed and patient started on flomax for BPH. On 12/17 the patient developed abdominal distention and vomiting. KUB revealed findings consistent with an ileus, therefore NGT was placed. He kept NGT in place while awaiting meaningful return of bowel function. He was able to tolerate trials of NGT clamping as symptoms improved. He eventually began passing more flatus and felt improvement in distention. On 12/21 the NGT was removed. His diet again was slowly advanced from clears to fulls, then to low fiber without issues. He continued to pass flatus and was having BM's. Throughout patient's hospitalization his pain remained controlled on prn pain medications, activity was encouraged, and he was on DVT prophylaxis in the form of subq lovenox. On 12/23 the patient was ultimately deemed stable for discharge to home on a low fiber diet. Incisions were c/d/i without signs of infection (he did have a ivet removed on 9/6). He was instructed to follow up in clinic with Dr. Kline in 1-2 weeks. Total Time Total Time Spent Total Time Spent (In Minutes): 15 Discharge Plan Discharge Items Patient Disposition: Home - Self-Care Reason For Visit: Cecal Volvulus Discharge Diagnosis: right hemicolectomy Activity: Per Instructions section Lifting: No more than 10 pounds Bathing Comment: may shower; no soaking in tubs/pools Exercise/Sports: Wait until after follow-up appointment Driving/Machine Use: when pain free. no driving while taking narcotics for pain Non-emergency contact: Surgeon Call non-emergency contact if: you have any medication questions, your symptoms worsen, your pain is not controlled, your pain is concerning for you, you have a fever, your temperature is above 101.5, your wound has increased redness, your wound has increased drainage and your wound pain has increased Follow-up/Referrals: Tim Kline DO [Surgeon] - 01/10/22 1:00 pm (Please call to schedule follow up in clinic within 2 weeks ) Lopez Gallegos DO [Primary Care Provider] - Diet: Low Fiber Diet Comment: low fiber diet Addtl Attending Provider Instructions: You have surgical michell in place that will be removed at your follow up appointment. This is usually done around 14 days after your procedure. You may keep incision covered for comfort if you wish (dry gauze/tape, change daily). Otherwise you may leave the incision open to air. You may shower over incision, let the soapy water run over it and pat to dry. You may continue to use Tylenol for pain if needed. Do not exceed >3grams of Acetaminophen within a 24 hour time period. Pending Studies at Discharge: Yes Studies:: surgical pathology Stand-Alone Forms: My [facility], Opioid Pain Management Medications and DC Order Prescriptions: New tamsulosin [Flomax] 0.4 mg capsule 0.4 mg PO DAILY Qty: 30 0RF oxycodone 5 mg tablet 5 - 10 mg PO .[id number] PRN (Reason: pain, for initial therapy, max 6 tabs per day) Qty: 10 0RF Continued meloxicam 15 mg tablet 15 mg PO QAM lisinopril 5 mg tablet 5 mg PO QAM Discharge Orders: Discharge Order (Routine); Ordered 12/23/21 Ordered By: Nanette Earl/Other Patient Handouts: Low-Fiber Diet Admission Data Admit Date/Time: 12/14/21 09:11 Attending Provider: Tim Kline Admit Provider: Tim Kline Primary Care Provider: Lopez Gallegos Other Interventions: Discharge Summary Assessment (RN) Last Done: 12/23/21 11:07 Coding Level of Care Code D/C DAY MANAGEMENT <30 MINS Diagnoses H/O right hemicolectomy Z90.49
== END 2021-12-23 13:15 | disposition home or self-care (01) | DRG 330 ==
LOC: ASU 05:28 → 3E 09:11